=== PATIENT | male | born 1950 | race Native Hawaiian/Other Pacific Islander ===

== ENCOUNTER 2018-08-20 13:35 | Emergency (ER) | payer OTHER ==
[~2018-08-20] VITALS: Ht 167.6 cm; Wt 99.8 kg
[2018-08-20] MEDS ORDERED: VALSARTAN80 MG PO (13:48)
[2018-08-20] MEDS ORDERED: NAPROXEN DR500 MG PO (13:48)
[2018-08-20] MEDS ORDERED: FINA5TAB2 PO (13:48)
[2018-08-20 14:23] LABS: PLATELET COUNT 308 K/uL (142-355)
[2018-08-20 14:37] LABS: POTASSIUM 3.5 mmol/L (3.6-5.2)
[2018-08-20 14:53] VITALS: BP 164/90; TEMP 97.7
== END 2018-08-20 15:02 | disposition home or self-care (01) ==
LOC: ED 13:35
DX: R51 Headache (principal)
CPT/HCPCS: 36415; 80053; 81000; 85027; 99283